=== PATIENT | male | born 1975 | race Caucasian/White ===

== ENCOUNTER → 2016-12-30 | Outpatient (CLI) | payer MEDICARE, MEDICAID | END | disposition home or self-care (01) | LOC: PCVCCLINIC 13:50 | PROVIDERS: ATTEND Internal Medicine Cardiovascular Disease | DX: I49.5 Sick sinus syndrome (principal); E78.00 Pure hypercholesterolemia, unspecified; I51.7 Cardiomegaly | CPT/HCPCS: 80061; 93005; G0463 ==